=== PATIENT | female | born 1985 | race Caucasian/White ===

== ENCOUNTER 2020-04-15 10:59 | Emergency (ER) | payer MEDICAID, SELFPAY ==
[2020-04-15 11:27] VITALS: BP 122/80; PULSE 108; RESP 14; TEMP 36.7; O2SAT 97; BMI 42.8
--- NOTE | 2020-04-15 11:31 | ED_ITS ---
HPI - General Adult General: Chief complaint: General Medical Stated complaint: Strep + Time Seen by Provider: 04/15/20 11:31 Source: patient Mode of arrival: ambulatory Limitations: no limitations History of Present Illness: HPI narrative: Patient is a 34-year-old female who presents to ED today for evaluation of her throat pain. Patient tells me on she began having a sore throat. She states by Friday pain had worsened so much that she sought evaluation. She tells me she had a positive strep test at an outlying clinic. She was given what sounds like IM Bicillin L-A and discharged home. Patient tells me when she woke up this morning pain continues to worsen. She is complaining of difficulty swallowing. She reports fevers of 102 and body aches. Onset (ago): hour(s) Severity: moderate Pain Consistency: constant Relieving factors: none Exacerbating factors: other (swallowing) Associated symptoms: Reports malaise; Deny chest pain, dyspnea, headache(s), nausea, rash or vomiting Review of Systems Const: Reports: fever(s), chills, body aches and malaise Eyes: Denies: change in vision, blurry vision, photophobia, eye discomfort or eye discharge ENMT: Reports: throat pain, enlarged tonsils and odynophagia; Denies: swelling of lips/tongue, oral sores, dental pain, ear or mastoid pain, ear discharge, nasal discharge, nasal congestion, nasal obstruction, post nasal drip or sinus pain Card: Denies: chest pain Resp: Denies: dyspnea, productive cough, non-productive cough or chest congestion GI: Denies: abdominal pain, nausea or vomiting Musc: Reports: neck pain; Denies: back pain, extremity pain, extremity swelling, joint pain or joint swelling Skin/Breast: Denies: rash Neuro: Denies: headache(s) or dizziness All/Imm: Denies: facial swelling or seasonal rhinorrhea Physical Exam Const: COMMON NORMALS: patient oriented x3, no limitations and alert NUTRITIONAL APPEARANCE: obese HENMT: COMMON NORMALS: normocephalic, atraumatic, hearing grossly normal bilaterally, external ears normal, EAC's normal, Normal external nose present, Normal nasal mucous membranes and turbinates present, moist oral mucous m embranes, dentition normal and gingiva normal HEAD & SCALP: normal to inspection, normocephalic and atraumatic FACE & SINUS: normal facial exam and sinuses nontender NOSE: Normal external nose present and Normal nasal mucous membranes and turbinates present EXTERNAL EAR: Yes external ears normal EXTERNAL AUDITORY CANAL: EAC's normal TYMPANIC MEMBRANE: TM abnormal (mild serous otitis bilaterally ) MOUTH: lip normal, tongue normal, audible dysphonia and other (floor of mouth is soft and non-elevated) THROAT: abnormal tonsil bilateral (bilateral exudative tonsillitis (grade 3 almost 4)); uvula not laterally displaced Eye: GENERAL EYE: appearance normal, both eyes and all related structures Neck/C-Spine: COMMON NORMALS: full ROM GENERAL: No anterior neck swelling, Yes lymphadenopathy (marked lymphadenopathy ), No tracheal deviation and No submandibular swelling Resp: COMMON NORMALS: normal respiratory effort and clear to auscultation bilaterally AUSCULTATION: clear to auscultation bilaterally Cardio: COMMON NORMALS: regular rate and regular rhythm RATE: regular rate RHYTHM: regular rhythm Neuro: JEREMIAH COMA SCALE: document GCS findings Jeremiah coma scale eye opening: Spontaneous Jeremiah coma scale verbal response: Orientated [place] coma scale motor response: Obey commands [place] coma scale total score: 15 COMMON NORMALS: patient oriented x3 SENSORIUM/ORIENTATION: Yes alert Skin: COMMON NORMALS: no rashes or lesions noted GENERAL SKIN EXAM: no rashes or lesions noted Course Vital Signs: Vital signs: Vital Signs Temperature 98.1 F 04/15/20 12:22 Pulse Rate 96 04/15/20 12:22 Respiratory Rate 14 04/15/20 12:22 Blood Pressure 147/110 04/15/20 12:22 Pulse Oximetry 99 04/15/20 12:22 MDM - General Adult MDM Narrative: Medical decision making narrative: Patient is able to eat ice chips and drink water here. CT scan showing tonsillitis. There is a suspicion for a developing BUSINESS INSURANCE AGENT although nothing drainable at this time. Patient was given IV antibiotics and dexamethasone here. She will be discharged home with steroids and antibiotics as well with extremely strict return to ED precautions. I will have case management try to get her an appointment with ENT early next week for reevaluation. She was instructed to return to the emergency department immediately for any worsening symptoms. Lab Data: Labs: Lab Results 04/15/20 04/15/20 04/15/20 Range/Units 12:02 12:02 12:02 WBC 15.4 H (4.0-10.0) 10^3/ uL RBC 4.73 (4.1-5.3) 10^6/u L Hgb 14.0 (11.5-15.3) g/dL Hct 41.5 (37.0-47.0) % MCV 87.7 (81-99) fL MCH 29.6 (28.0-34.0) pg MCHC 33.7 (30.0-36.0) g/dL RDW 13.2 (12.1-15.1) % Plt Count 276 (130-400) 10^3/c mm MPV 9.7 (7.4-10.4) fL Neut % (Auto) 81.4 % Lymph % (Auto) 11.1 % Dougherty % (Auto) 5.8 % Eos % (Auto) 0.5 % Baso % (Auto) 0.3 % Neut # (Auto) 12.53 H (1.8-7.7) 10^3/u L Lymph # (Auto) 1.7 (0.8-4.8) 10^3/u L Dougherty # (Auto) 0.9 (0.2-0.9) 10^3/u L Eos # (Auto) 0.1 (0.0-0.8) 10^3/u L Baso # (Auto) 0.0 (0.0-0.1) 10^3/u L Nucleated RBC % (a uto) 0 % Nucleated RBCs # 0.0 /100WBC Sodium 136 (136-145) mmol/L Potassium 3.7 (3.5-5.1) mmol/L Chloride 99 (98-107) mmol/L Carbon Dioxide 28 (22-29) mmol/L Anion Gap 12.7 (5-19) BUN 9 (6-20) mg/dL Creatinine 0.5 (0.5-0.9) mg/dL GFR Calculation 143.0 H (90-130) mL/min Glucose 103 (65-115) mg/dL Calculated Osmolal ity 281 L (285-295) mOsm/k g Lactic Acid (0.5-2.2) mmol/L Calcium 9.4 (8.5-10.5) mg/dL Total Bilirubin 0.3 (0.15-1.2) mg/dL AST 15 (0-32) U/L ALT 24 (0-33) U/L Alkaline Phosphata se 124 H (35-105) IU/L Total Protein 10.5 H (6.6-8.7) g/dL Albumin 4.0 (3.5-5.2) g/dL Globulin 6.5 H (1.3-4.6) g/dL HCG, Qual Negative (Negative) 04/15/20 Range/Units 12:02 WBC (4.0-10.0) 10^3/ uL RBC (4.1-5.3) 10^6/u L Hgb (11.5-15.3) g/dL Hct (37.0-47.0) % MCV (81-99) fL MCH (28.0-34.0) pg MCHC (30.0-36.0) g/dL RDW (12.1-15.1) % Plt Count (130-400) 10^3/c mm MPV (7.4-10.4) fL Neut % (Auto) % Lymph % (Auto) % Dougherty % (Auto) % Eos % (Auto) % Baso % (Auto) % Neut # (Auto) (1.8-7.7) 10^3/u L Lymph # (Auto) (0.8-4.8) 10^3/u L Dougherty # (Auto) (0.2-0.9) 10^3/u L Eos # (Auto) (0.0-0.8) 10^3/u L Baso # (Auto) (0.0-0.1) 10^3/u L Nucleated RBC % (a uto) % Nucleated RBCs # /100WBC Sodium (136-145) mmol/L Potassium (3.5-5.1) mmol/L Chloride (98-107) mmol/L Carbon Dioxide (22-29) mmol/L Anion Gap (5-19) BUN (6-20) mg/dL Creatinine (0.5-0.9) mg/dL GFR Calculation (90-130) mL/min Glucose (65-115) mg/dL Calculated Osmolal ity (285-295) mOsm/k g Lactic Acid 0.8 (0.5-2.2) mmol/L Calcium (8.5-10.5) mg/dL Total Bilirubin (0.15-1.2) mg/dL AST (0-32) U/L ALT (0-33) U/L Alkaline Phosphata se (35-105) IU/L Total Protein (6.6-8.7) g/dL Albumin (3.5-5.2) g/dL Globulin (1.3-4.6) g/dL HCG, Qual (Negative) Imaging Data^: CT neck: Radiologist's impression: [facility] [employer] [address] [address] Scan Report Signed Patient: Caterina Mar DUnit #: [id number] : 1985Acct#:[id number] Age/Sex: 34 / FADM Date: 04/15/20 Loc: ERRoom/Bed: Attending Dr: Ordering Provider/Ordering MD: Lisa Sifuentes Date of Service: 04/15/20 Procedure(s): CT neck w con* [id number] Accession Number(s): [id number] Report Number: [id number] PROCEDURE INFORMATION: Exam: CT Neck With Contrast Exam date and time: 04/15/2020 12:56 PM Age: 34 years old Clinical indication: Painful swallowing; Patient HX: C/O neck pain and swelling since strep+; Additional info: Strep tonsillitis; Trouble swallowing, neck swelling TECHNIQUE: Imaging protocol: Computed tomography images of the neck with intravenous contrast. Radiation optimization: All CT scans at this facility use at least one of these dose optimization techniques: automated exposure control; mA and/or kV adjustment per patient size (includes targeted exams where dose is matched to clinical indication); or iterative reconstruction. Contrast material: OMNI 300; Contrast volume: 95 ml; Contrast route: INTRAVENOUS (IV); COMPARISON: No relevant prior studies available. RADIATION DOSE METRICS: Total DLP (mGy-cm): 726.9 FINDINGS: Nasopharynx: Unremarkable. Oropharynx: Adenoid and palatine tonsils are enlarged with striated enhancement, consistent with tonsillitis. Ill-defined low-density with peripheral enhancement along the right palatine tonsil measures 12 mm x 7 mm and is suspicious for a developing peritonsillar abscess. Hypopharynx: Unremarkable. Larynx: Unremarkable. Normal epiglottis. Retropharyngeal space: Unremarkable. Submandibular/Parotid glands: Normal. Glands are normal in size. Thyroid: 4 mm well-circumscribed hypoenhancing lesion in the left thyroid lobe.No follow-up is recommended. No enlarged or calcified nodules. Lymph nodes: There are shotty level 2 through 4 lymph nodes bilaterally. Trachea: Visualized trachea is unremarkable. Lungs: Unremarkable as visualized. Bones/joints: Unremarkable. No acute fracture. Soft tissues: Unremarkable. No significant soft tissue swelling. CT/CT neck w con* [id number] IMPRESSION: Tonsillitis involving the bilateral adenoid and palatine tonsils. There is suspicion for a developing 12 mm peritonsillar abscess along the right palatine tonsil. COMMENTS: Consistent with the [employer]'s Incidental Findings Committee white paper (J Am Timmy Radiol 2015): In patients under 35 years old with an incidental thyroid nodule equal to or greater than [address], MRI or extrathyroidal US, further evaluation with dedicated thyroid US is recommended for patients with normal life expectancy and without comorbidities. For smaller nodules without suspicious features, no further evaluation or follow up is recommended. Radiation Dose CTDIVOL = (mGy): DLP = 726.9 (mGy-cm) Dictated By:Macie Burks MD Signed By:Macie Burksigned Date/Time:04/15/20 1353 DD/ 1351 Discharge Plan Discharge Patient Disposition: Home Clinical Impression: Strep tonsillitis Condition: Stable Prescriptions: New prednisone 10 mg tablet 60 mg PO DAILY 5 Days Qty: 30 RF: 0 clindamycin HCl 300 mg capsule 300 mg PO Q6H 7 Days Qty: 28 RF: 0 No Action ibuprofen 200 mg Tablet 600 mg PO PRN RF: 0 Excedrin Migraine 250-250-65 mg Tablet 2 tab PO PRN RF: 0 Chloraseptic (benzocaine) Lozenge See Rx Instructions .ROUTE .COMPLEX RF: 0 NyQuil See Rx Instructions .ROUTE .COMPLEX RF: 0 Discharge Orders: Discharge ED (Routine); Ordered 04/15/20 Ordered By: Lisa Sifuentes Patient Instructions: Peritonsillar Abscess (ED), Strep Throat (ED), Tonsillitis (ED) Activity Restrictions/Additional Instructions: As discussed fill and start your antibiotics and steroids as soon as possible. Continue liquid diet and advance as tolerated. You need to return to the emergency department immediately if you are no longer able to hold down fluids or control your saliva or if you have difficulty breathing. Case management will try to contact you on Friday and get you set up with an ear nose and throat provider for follow-up. Coding Level of Care Code ED Change Control Analyst for Chg Fwd Exam Comprehensive
--- NOTE | 2020-04-15 11:40 | CTR_ITS ---
PROCEDURE INFORMATION: Exam: CT Neck With Contrast Exam date and time: 04/15/2020 12:56 PM Age: 34 years old Clinical indication: Painful swallowing; Patient HX: C/O neck pain and swelling since strep+; Additional info: Strep tonsillitis; Trouble swallowing, neck swelling TECHNIQUE: Imaging protocol: Computed tomography images of the neck with intravenous contrast. Radiation optimization: All CT scans at this facility use at least one of these dose optimization techniques: automated exposure control; mA and/or kV adjustment per patient size (includes targeted exams where dose is matched to clinical indication); or iterative reconstruction. Contrast material: OMNI 300; Contrast volume: 95 ml; Contrast route: INTRAVENOUS (IV); COMPARISON: No relevant prior studies available. RADIATION DOSE METRICS: Total DLP (mGy-cm): 726.9 FINDINGS: Nasopharynx: Unremarkable. Oropharynx: Adenoid and palatine tonsils are enlarged with striated enhancement, consistent with tonsillitis. Ill-defined low-density with peripheral enhancement along the right palatine tonsil measures 12 mm x 7 mm and is suspicious for a developing peritonsillar abscess. Hypopharynx: Unremarkable. Larynx: Unremarkable. Normal epiglottis. Retropharyngeal space: Unremarkable. Submandibular/Parotid glands: Normal. Glands are normal in size. Thyroid: 4 mm well-circumscribed hypoenhancing lesion in the left thyroid lobe.No follow-up is recommended. No enlarged or calcified nodules. Lymph nodes: There are shotty level 2 through 4 lymph nodes bilaterally. Trachea: Visualized trachea is unremarkable. Lungs: Unremarkable as visualized. Bones/joints: Unremarkable. No acute fracture. Soft tissues: Unremarkable. No significant soft tissue swelling. CT/CT neck w con* [id number] IMPRESSION: Tonsillitis involving the bilateral adenoid and palatine tonsils. There is suspicion for a developing 12 mm peritonsillar abscess along the right palatine tonsil. COMMENTS: Consistent with the [employer]'s Incidental Findings Committee white paper (J Am Timmy Radiol 2015): In patients under 35 years old with an incidental thyroid nodule equal to or greater than [address], MRI or extrathyroidal US, further evaluation with dedicated thyroid US is recommended for patients with normal life expectancy and without comorbidities. For smaller nodules without suspicious features, no further evaluation or follow up is recommended. Radiation Dose CTDIVOL = (mGy): DLP = 726.9 (mGy-cm)
[2020-04-15 12:14] LABS: Basophils % 0.3 %; Eosinophils # 0.1 10^3/uL (0.0-0.8); Eosinophils % 0.5 %; Hematocrit 41.5 % (37.0-47.0); Lymphocytes # 1.7 10^3/uL (0.8-4.8); Lymphocytes % 11.1 %; Mean Corpuscular HGB Conc 33.7 g/dL (30.0-36.0); Mean Corpuscular Hemoglobin 29.6 pg (28.0-34.0); Mean Corpuscular Volume 87.7 fL (81-99); Mean Platelet Volume 9.7 fL (7.4-10.4); Monocytes # 0.9 10^3/uL (0.2-0.9); Monocytes % 5.8 %; Neutrophils # 12.53 10^3/uL (1.8-7.7); Neutrophils % 81.4 %; Nucleated Red Blood Cells % 0 %; Platelet Count 276 10^3/cmm (130-400); Red Blood Count 4.73 10^6/uL (4.1-5.3); Red Cell Distribution Width 13.2 % (12.1-15.1); White Blood Count 15.4 10^3/uL (4.0-10.0)
[2020-04-15 12:22] VITALS: BP 147/110; PULSE 96; RESP 14; TEMP 36.7; O2SAT 99
[2020-04-15] MEDS: clindamycin 900 MG/50 ML PREMIX 100 MG IV (12:25)
[2020-04-15] MEDS: dexamethasone 10 mg/mL INJ 8 MG IV (12:26)
[2020-04-15 12:40] LABS: Alanine Aminotransferase 24 U/L (0-33); Alkaline Phosphatase 124 IU/L (35-105); Anion Gap 12.7 (5-19); Aspartate Amino Transferase 15 U/L (0-32); Blood Urea Nitrogen 9 mg/dL (6-20); Calcium 9.4 mg/dL (8.5-10.5); Carbon Dioxide 28 mmol/L (22-29); Chloride 99 mmol/L (98-107); Globulin 6.5 g/dL (1.3-4.6); Glucose 103 mg/dL (65-115); Osmolality Calculated 281 mOsm/kg (285-295); Potassium 3.7 mmol/L (3.5-5.1); Sodium 136 mmol/L (136-145); Total Bilirubin 0.3 mg/dL (0.15-1.2); Total Protein 10.5 g/dL (6.6-8.7)
[2020-04-15 12:43] LABS: HCG, Serum Qual Negative (Negative)
[2020-04-15 12:55] LABS: Lactic Sepsis W/Reflex 0.8 mmol/L (0.5-2.2)
[2020-04-15] MEDS: iohexol 300 mg/mL 100 mL Btl IV (13:01)
--- NOTE | 2020-04-15 13:53 | PC.PHAR ---
pt states she takes no rx medications-pt states she got a shot from her dr on 04/14/20 but is unsure what the shot was states it was some kind of antibiotic
[2020-04-15 14:05] VITALS: BP 121/83; PULSE 97; RESP 18; O2SAT 97
[2020-04-15 14:08] VITALS: RESP 18; O2SAT 97
[2020-04-15] MEDS: ondansetron 2 mg/ML SDV 2 mL 4 MG IVP (14:08)
[2020-04-15] MEDS: morphine 4 mg/mL SDV 1 mL IVP (14:08)
[2020-04-15 14:27] VITALS: BP 121/83; PULSE 99; RESP 16; O2SAT 95
--- NOTE | 2020-04-17 14:11 | DCPLANNER ---
keno manager had message to schedule a follow up appointment for patient with ENT. keno manager emailed patients information to both Eunice and Sandra. Patients information will be printed and reviewed. Clinic will call patient with appointment information.
--- NOTE | 2020-04-18 07:46 | DCPLANNER ---
Patient has a follow up appointment scheduled for Friday, April 24, 2020 at 1:[address] Resendez. Clinic will call patient with appointment information.
--- NOTE | 2020-04-24 16:03 | DCPLANNER ---
Patient had an appointment scheduled for 04.24.20 with ENT - appointment was cancelled.
== END 2020-04-15 14:27 | disposition home or self-care (01) ==
PROVIDERS: Emergency Provider Physician Assistant
DX: J03.00 Acute streptococcal tonsillitis, unspecified (principal)
CPT/HCPCS: 12345; 70491; 80053; 83605; 84703; 85025; 96365; 96375; 99283; J1100; J2270; J2405; J3490; Q9967

== ENCOUNTER 2020-09-28 11:47 | Outpatient (CLI) | payer MEDICAID, SELFPAY ==
--- NOTE | 2020-09-28 12:15 | US_ITS ---
WS: [id number] Pelvic ultrasound, 09/28/2020 Clinical Data: IRREGULAR MENSES Comparison: None. Findings: The uterus measures 7.9 cm x 4.8 cm x 4.3 cm. The endometrium is 0.5 cm. No intrauterine or abnormal intrauterine mass is seen. There is an intrauterine device in the endometrium. The left ovary measures 3.8 cm x 3.2 cm x 2.3 cm with no cysts or masses. The right ovary measures 3.7 cm x 2.4 cm x 2.8 cm with no cysts or masses. US/US transvaginal [id number] Impression: 1. Negative pelvic ultrasound. 2. Intrauterine device in good position.
== END 2020-09-28 11:48 | disposition home or self-care (01) ==
LOC: RAD 11:50
PROVIDERS: Visit Provider Family Medicine
DX: N92.6 Irregular menstruation, unspecified (principal); Z97.5 Presence of (intrauterine) contraceptive device
CPT/HCPCS: 76830

== ENCOUNTER → 2021-03-07 14:37 | Outpatient (BNVA) | payer MEDICAID, SELFPAY | PROVIDERS: Referring Provider Nurse Practitioner Family; Visit Provider Orthopaedic Surgery | DX: M25.562 Pain in left knee (principal); M25.561 Pain in right knee | CPT/HCPCS: 73560; 73565 ==

== ENCOUNTER → 2021-10-03 15:26 | Outpatient (BNVA) | payer MEDICAID, SELFPAY | PROVIDERS: Visit Provider Orthopaedic Surgery | DX: M22.42 Chondromalacia patellae, left knee (principal) | CPT/HCPCS: 99213 ==

== ENCOUNTER → 2023-01-22 11:21 | Outpatient (BNVA) | payer MEDICAID, SELFPAY | PROVIDERS: PCP Nurse Practitioner Family; Visit Provider Nurse Practitioner Family | DX: R10.9 Unspecified abdominal pain (principal); R31.9 Hematuria, unspecified; M54.9 Dorsalgia, unspecified; G43.909 Migraine, unspecified, not intractable, without status migrainosus; Z79.899 Other long term (current) drug therapy; E11.69 Type 2 diabetes mellitus with other specified complication; E78.5 Hyperlipidemia, unspecified; E55.9 Vitamin D deficiency, unspecified; E53.8 Deficiency of other specified B group vitamins; Z13.6 Encounter for screening for cardiovascular disorders; M62.838 Other muscle spasm | CPT/HCPCS: 74018; 80053; 80061; 81000; 81003; 82306; 83036; 84443; 85025 ==

== ENCOUNTER 2023-06-12 13:14 | Outpatient (CLI) | payer MEDICAID, SELFPAY ==
--- NOTE | 2023-06-12 13:25 | XRR_ITS ---
PROCEDURE INFORMATION: Exam: XR Cervical Spine Exam date and time: 06/12/2023 1:43 PM Age: 37 years old Clinical indication: Neck pain and other: Shoulder pain; Additional info: S13.9xxa - sprain of joints and ligaments of unspecified . . . TECHNIQUE: Imaging protocol: Radiologic exam of the cervical spine. Views: 6 or more views. COMPARISON: CT neck w con* [id number] 04/15/2020 12:51 PM FINDINGS: Bones/joints: Normal. No acute fracture. Normal alignment. No abnormal motion with flexion or extension. Soft tissues: Unremarkable. XR/XR cervical spine min 6V [id number] IMPRESSION: No acute findings.
--- NOTE | 2023-06-12 13:25 | XRR_ITS ---
PROCEDURE INFORMATION: Exam: XR Right Shoulder Exam date and time: 06/12/2023 1:43 PM Age: 37 years old Clinical indication: Pain; Shoulder; Right; Additional info: S46.911a - strain of unspecified muscle, fascia and tendo. . . TECHNIQUE: Imaging protocol: Radiologic exam of the right shoulder. Views: 2 or more views. COMPARISON: CR XR cervical spine min 6V [id number] 06/12/2023 1:43 PM FINDINGS: Bones/joints: Normal. No fracture or dislocation. No acute osseous, joint, or soft tissue abnormality. Soft tissues: Normal. XR/XR shoulder RT min 2V* [id number] IMPRESSION: No acute findings.
== END 2023-06-12 13:15 | disposition home or self-care (01) ==
LOC: RAD 13:16
PROVIDERS: PCP Nurse Practitioner Family; Visit Provider Nurse Practitioner Family
DX: S46.911A Strain of unspecified muscle, fascia and tendon at shoulder and upper arm level, right arm, initial encounter (principal); S13.9XXA Sprain of joints and ligaments of unspecified parts of neck, initial encounter; V89.2XXA Person injured in unspecified motor-vehicle accident, traffic, initial encounter
CPT/HCPCS: 72052; 73030

== ENCOUNTER 2023-06-30 06:00 | Outpatient (RCR) | payer SELFPAY | END 2023-07-22 23:59 | disposition home or self-care (01) | LOC: WPT 06:00 | PROVIDERS: Visit Provider Nurse Practitioner Family | DX: S13.9XXD Sprain of joints and ligaments of unspecified parts of neck, subsequent encounter (principal); S46.911D Strain of unspecified muscle, fascia and tendon at shoulder and upper arm level, right arm, subsequent encounter; S13.4XXD Sprain of ligaments of cervical spine, subsequent encounter; X58.XXXD Exposure to other specified factors, subsequent encounter | CPT/HCPCS: 97110; 97112; 97140; 97161; 97530 ==

== ENCOUNTER 2023-07-23 06:00 | Outpatient (RCR) | payer SELFPAY | END 2023-08-22 23:59 | disposition home or self-care (01) | LOC: WPT 06:00 | PROVIDERS: Visit Provider Nurse Practitioner Family | DX: S13.9XXD Sprain of joints and ligaments of unspecified parts of neck, subsequent encounter (principal); S46.911D Strain of unspecified muscle, fascia and tendon at shoulder and upper arm level, right arm, subsequent encounter; S13.4XXD Sprain of ligaments of cervical spine, subsequent encounter; X58.XXXD Exposure to other specified factors, subsequent encounter | CPT/HCPCS: 97110; 97112; 97140; 97530 ==

== ENCOUNTER 2023-08-23 06:00 | Outpatient (RCR) | payer MEDICAID, SELFPAY | END 2023-09-21 23:59 | disposition home or self-care (01) | LOC: WPT 06:00 | PROVIDERS: PCP Nurse Practitioner Family; Visit Provider Nurse Practitioner Family | DX: S46.911D Strain of unspecified muscle, fascia and tendon at shoulder and upper arm level, right arm, subsequent encounter (principal); S13.4XXD Sprain of ligaments of cervical spine, subsequent encounter; X58.XXXD Exposure to other specified factors, subsequent encounter | CPT/HCPCS: 97110; 97112; 97140; 97530 ==

== ENCOUNTER 2023-11-05 07:00 | Outpatient (CLI) | payer MEDICAID, SELFPAY ==
--- NOTE | 2023-11-05 07:00 | US_ITS ---
WS: [id number] INDICATION: Enlarged lymph nodes TECHNIQUE: Ultrasound neck soft tissue area of concern FINDINGS: Ultrasound in the area of the LEFT submandibular gland area of concern. LEFT submandibular gland is larger than the RIGHT but with normal echotexture. Enlarged lymph nodes in the area of hans rn LEFT neck with persistent fatty hilum. These are most likely reactive. Largest lymph node measures up to 1.9 cm. If continued concern this could be further evaluated with contrast-enhanced neck CT. US/US soft tissue head neck [id number] IMPRESSION: See above discussion
--- NOTE | 2023-11-05 07:15 | MR_ITS ---
WS: [id number] MRI CERVICAL SPINE NONCONTRAST HISTORY: Chiari I and migraines. COMPARISON: MRI brain 10/02/2023 Technique: Multiplanar, multisequence noncontrast imaging of the cervical spine. Reidentified is slight inferior displacement of the cerebellar tonsils consistent with a mild Chiari I malformation. Cerebellar tonsils extend approximately 4 mm distal to the foramen magnum. Fourth iliana tricle is visualized is normal. Signal within the cervical cord is normal. Visualized posterior fossa is unremarkable. C2-C3: Normal. C3-C4: Normal. C4-C5: Mild annular disc bulging and osteophytic ridging. Mild encroachment upon the ventral thecal s ac. C5-C6: Mild annular disc bulging and osteophytic ridging. Very mild encroachment upon the ventral the kelsey sac. C6-C7: Normal. C7-T1: Normal. Paraspinal soft tissue are normal. MR/MR cervical spin wo con* [id number] IMPRESSION: 1. 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 2. No cervical cord syrinx. 3. Mild reversal of the normal cervical lordosis centered at C4-5. 4. No significant central or foraminal stenosis.
== END 2023-11-05 07:07 | disposition home or self-care (01) ==
PROVIDERS: PCP Nurse Practitioner Family; Visit Provider Nurse Practitioner Family
DX: R90.89 Other abnormal findings on diagnostic imaging of central nervous system (principal); R59.1 Generalized enlarged lymph nodes; G93.5 Compression of brain
CPT/HCPCS: 72141; 76536

== ENCOUNTER → 2024-02-10 14:13 | Outpatient (BNVA) | payer MEDICAID, SELFPAY | PROVIDERS: PCP Nurse Practitioner Family; Visit Provider Podiatrist Foot & Ankle Surgery | DX: M79.671 Pain in right foot; M79.672 Pain in left foot; M77.41 Metatarsalgia, right foot; M77.42 Metatarsalgia, left foot; S93.311A Subluxation of tarsal joint of right foot, initial encounter; S93.312A Subluxation of tarsal joint of left foot, initial encounter; X58.XXXA Exposure to other specified factors, initial encounter | CPT/HCPCS: 73630 ==

== ENCOUNTER → 2025-03-02 08:54 | Outpatient (BNVA) | payer SELFPAY | PROVIDERS: PCP Nurse Practitioner Family; Visit Provider Nurse Practitioner Family | DX: Z13.6 Encounter for screening for cardiovascular disorders (principal); E55.9 Vitamin D deficiency, unspecified; L40.9 Psoriasis, unspecified; Z79.899 Other long term (current) drug therapy | CPT/HCPCS: 80053; 80061; 81003; 82306; 83036; 84443; 85025; 86038 ==